=== PATIENT | female | born 1980 | race Caucasian/White ===

== ENCOUNTER 2017-12-31 11:20 | Emergency (ER) | payer SELFPAY ==
[2017-12-31] MEDS ORDERED: methylPREDNISolone Sod Succ/PF 125 MG/2 ML VIAL ONE (11:41)
== END 2017-12-31 12:54 | disposition home or self-care (01) ==
LOC: NAV ERS 11:20
DX: T78.40XA Allergy, unspecified, initial encounter (principal); F41.9 Anxiety disorder, unspecified; F32.9 Major depressive disorder, single episode, unspecified; F17.210 Nicotine dependence, cigarettes, uncomplicated
CPT/HCPCS: 96374; J2930

== ENCOUNTER 2018-03-15 19:40 | Emergency (ER) | payer SELFPAY ==
[2018-03-15] MEDS ORDERED: Sulfameth/Trimethoprim DS 800-160mg TAB ONE (20:18)
== END 2018-03-15 20:41 | disposition home or self-care (01) ==
LOC: NAV ERS 19:40
DX: L02.01 Cutaneous abscess of face (principal); F41.9 Anxiety disorder, unspecified; F32.9 Major depressive disorder, single episode, unspecified; F17.210 Nicotine dependence, cigarettes, uncomplicated
CPT/HCPCS: 99283

== ENCOUNTER 2018-05-23 17:20 | Emergency (ER) | payer SELFPAY ==
--- NOTE | 2018-05-23 18:17 | RAD ---
LEFT ELBOW FOUR VIEWS: HISTORY: Fall with continued pain for two weeks. TECHNIQUE: AP, lateral, and both oblique views of the left elbow are obtained. FINDINGS: Four views of the left elbow demonstrate no evidence of left elbow fractures, subluxations, or bony l esions. If there is concern for soft tissue pathology, correlation with MRI, electively, as well as an orthopedic consultation, may be of use. IMPRESSION: No evidence of acute left elbow fractures. POS: [facility]
== END 2018-05-23 18:15 | disposition home or self-care (01) ==
LOC: NAV ERS 17:20
DX: M25.522 Pain in left elbow (principal); F41.9 Anxiety disorder, unspecified; F32.9 Major depressive disorder, single episode, unspecified; F17.210 Nicotine dependence, cigarettes, uncomplicated